=== PATIENT | female | born 1940 | race Caucasian/White ===

== ENCOUNTER 2022-10-28 16:48 | Emergency (ER) | payer MEDICARE, SELFPAY ==
--- NOTE | ~2022-10-28 | XR_ITS ---
EXAMINATION: XR chest 2V Exam Date/Time: 10/28/2022 17:45 [employer]MAKER HISTORY: COUGH,CONGESTION, SOB, WHEEZING Comparison: None available. RESULT: Lines, tubes, and devices: Left chest pacer/defibrillator with intact leads. Lungs and pleura: Clear. Calcified granulomas. Cardiomediastinal silhouette: Mildly prominent central pulmonary arteries as can be seen with pulmon ellen arterial hypertension. Calcified right hilar lymph nodes. Other: No acute osseous or upper abdominal finding. Degenerative changes in the thoracic spine. IMPRESSION: No acute cardiopulmonary process. Reviewed, dictated and finalized at location [facility]. [facility]
[2022-10-28 17:06] VITALS: BP 110/52; PULSE 85; RESP 20; TEMP 36.9; O2SAT 96
--- NOTE | 2022-10-28 17:36 | ED.URI ---
HPI - URI/Sore Throat General Chief Complaint: Upper Respiratory Infection Stated Complaint: Sore Throat Time Seen by Provider: 10/28/22 17:36 Source: patient, RN notes reviewed and old records reviewed Mode of arrival: ambulatory Limitations: no limitations History of Present Illness HPI Narrative: 82-year-old female presents to [facility] with complaints of having cough, increased sputum, some shortness of breath with wheezing and nasal drainage, headaches and has been fatigued since Saturday. patient reports that she had a pacemaker/defibrillator change 5 weeks ago. Patient reports that she had 101F temperature on Saturday last no fever since.Patient has been COVID vaccinated and has had flu shot.Had 2 negative home COVID tests. MD elicited complaint: cough, rhinorrhea, nasal congestion and other (headache and fatigue) Pertinent past history: COPD Onset (ago): day(s) (6 days) Pain scale (0-10): 4 Treatments prior to arrival: other (NyQuil cold and cough medication) Related Data Home Medications Medication Instructions Recorded Confirmed empagliflozin 10 mg tablet 10 mg PO DAILY 10/28/22 10/28/22 (Jardiance) insulin glargine 100 unit/mL (3 See Rx Instructions .Route .COMPLEX 10/28/22 10/28/22 mL) subcutaneous pen (Lantus Solostar U-100 Insulin) levothyroxine 88 mcg tablet 88 mcg PO DAILY 10/28/22 10/28/22 lisinopril 5 mg tablet 4 mg PO DAILY 10/28/22 10/28/22 metoprolol succinate 50 mg 50 mg PO DAILY 10/28/22 10/28/22 tablet,extended release 24 hr rosuvastatin 20 mg tablet 20 mg PO DAILY 10/28/22 10/28/22 Allergies Allergy/AdvReac Type Severity Reaction Status Date / Time No Known Allergies Allergy Verified 10/28/22 17:21 Review of Systems Review of Systems: CONSTITUTIONAL: Reports malaise, chills, sweats, or fever. EYES: Denies visual changes, redness, or discharge. ENT: Reports rhinorrhea, congestion, sinus pain, otalgia and sore throat. CARDIOVASCULAR: Denies chest pain, palpitations, or edema. RESPIRATORY: Reports cough.? Reports some dyspnea. GASTROINTESTINAL: Denies abdominal pain, nausea, vomiting, diarrhea SKIN: Denies rash or itching. MUSCULOSKELETAL: Denies myalgia. NEUROLOGIC: Positive for headache. All systems reviewed & are unremarkable except as noted in HPI and below PMFSH Past Medical History Medical History (Updated 11/06/22 @ 12:01 by Maura Vee NP) Arthritis CAD (coronary artery disease) COPD (chronic obstructive pulmonary disease) Diabetes Elevated cholesterol Hypertension Myocardial infarction Pacemaker Surgical History Surgical History (Updated 11/06/22 @ 12:03 by Maura Vee NP) History of hip replacement History of partial hysterectomy Hx of cholecystectomy Social History Social History (Updated 11/06/22 @ 11:58 by Maura Vee NP) Smoking status: Former smoker Tobacco type: cigarettes Additional smoking assessment comments: Quit 2004 Alcohol intake: current Alcohol use details: rare Substance use: never Gender identity (if verbalized by the patient): Female Comments At time of signature, agree with nursing past medical, surgical, social and family history. There is no relevant family history pertinent to the presenting complaint Exam Narrative: GENERAL: Well-appearing, well-nourished, and in no acute distress. HEAD: Normocephalic EYES: PERRLA, conjunctivae clear ENT: Nares clear, turbinates edematous and erythematous, clear discharge. Mucous membranes moist. TM pearly rhodes with dull light reflex bilaterally; no tragal tenderness. Oropharynx erythematous without lesions. Tonsils not enlarged and without exudate, no drooling, no hoarseness, no trismus, uvula midline.post nasal drainage NECK: Supple. No lymphadenopathy CHEST: Decreased breath sounds on ascultation, breath sounds equal. No wheezing, rhonchi, rales, or stridor. No respiratory distress, speaks in full sentences.productive cough SAO2 96% o
== END 2022-10-28 18:15 | disposition home or self-care (01) ==
PROVIDERS: Emergency Provider Registered Nurse
DX: J06.9 Acute upper respiratory infection, unspecified (principal); R05.9 Cough, unspecified; J44.9 Chronic obstructive pulmonary disease, unspecified; Z95.810 Presence of automatic (implantable) cardiac defibrillator; I25.10 Atherosclerotic heart disease of native coronary artery without angina pectoris; E78.00 Pure hypercholesterolemia, unspecified; I10 Essential (primary) hypertension; I25.2 Old myocardial infarction; Z86.16 Personal history of COVID-19; M19.90 Unspecified osteoarthritis, unspecified site; E11.9 Type 2 diabetes mellitus without complications; E03.9 Hypothyroidism, unspecified; Z90.711 Acquired absence of uterus with remaining cervical stump
CPT/HCPCS: 71046; 99213; G0463